=== PATIENT | female | born 1975 | race Caucasian/White ===

== ENCOUNTER 2018-10-31 01:02 | Observation (INO) | payer MEDICARE, MEDICAID ==
[~2018-10-31] VITALS: Ht 157.5 cm; Wt 82.6 kg
[2018-10-31] VITALS (10 sets, daily range): BP systolic 109–143; BP diastolic 62–93
[~2018-10-31 01:02] MED LIST: ACET500T68 PO; MELO-205 PO
[2018-10-31] MEDS: NORMOSOL R SOLN(*) 1000 ML BAG 1,000 ML IV PRN ×2 (08:39→11:16)
[2018-10-31] MEDS ORDERED: fentaNYL CITR 100 MCG/2 ML AMP ONE ×3 (09:28→14:36)
[2018-10-31] MEDS ORDERED: ONDANSETRON 4 MG/2 ML VIAL ONE (09:29)
[2018-10-31] MEDS ORDERED: DEXAMETHASONE SOD PHOS 10MG/ML ONE (09:29)
[2018-10-31] MEDS ORDERED: LIDOCAINE MPF 1% 5 ML VIAL ONE (09:29)
[2018-10-31] MEDS ORDERED: KETAMINE HCL 500 MG/10 ML VIAL ONE (09:29)
[2018-10-31] MEDS ORDERED: THROMBIN (BOVINE) 20,000 UNIT VIAL ONE (09:29)
[2018-10-31] MEDS ORDERED: ROCURONIUM BROM 10 MG/ML 10 ML ONE (09:29)
[2018-10-31] MEDS ORDERED: PROPOFOL EMUL(*) 10MG/ML 20 ML 20 ML ONE (09:29)
[2018-10-31] MEDS ORDERED: PHENYLEPHRINE 10 MG/1 ML VIAL ONE (09:32)
[2018-10-31] MEDS ORDERED: PREGABALIN 150 MG CAPSULE PO ONE (09:35)
[2018-10-31] MEDS ORDERED: MIDAZOLAM 2 MG/2 ML VIAL IVP PRN (09:35)
[2018-10-31] MEDS ORDERED: ceFAZolin(*) 2GM/D5W 50ML 50 ML IVPB ONE (09:35)
[2018-10-31] MEDS ORDERED: ACETAMINOPHEN 500 MG TAB PO ONE (09:35)
[2018-10-31] MEDS ORDERED: LIDOCAINE/SOD BICARB 8.4% SYR ID ONE (09:35)
[2018-10-31] MEDS ORDERED: FAMOTIDINE 20 MG TAB PO ONE (09:35)
[2018-10-31] MEDS ORDERED: REMIFENTANIL HCL 1 MG VIAL ONE ×2 (09:41→13:25)
[2018-10-31] MEDS ORDERED: PROPOFOL EMUL(*) 10MG/ML 20 ML 60 ML ONE ×2 (09:49→12:34)
[2018-10-31] MEDS ORDERED: HYDROCORTISONE 100 MG/2 ML IVP ONE (11:15)
[2018-10-31] MEDS ORDERED: SUGAMMADEX SOD 500 MG/5 ML SDV ONE (11:48)
--- NOTE | 2018-10-31 14:02 | RADIOLOGY IMAGING REPORT ---
[place] [facility] [place] NAME[place] Estelle Hannah : 1975 MR: [id number] V: [id number] EXAM DATE: ORDERING PHYSICIAN: AURELIO MOYA TECHNOLOGIST: Location: [facility] - [place] Patient: Estelle Hannah : 1975 Visit/Account:[id number] Date of Sevice: 10/31/2018 Technique: CERVICAL SPINE 2 OR 3 VIEW HISTORY: C5-C7 fusion Comparison studies: None FINDINGS: 2 lateral views were obtained of the cervical spine. Surgical instrumentation is seen ante rior to the C5-C6 disc space. Subsequently, anterior cervical discectomy and fusion is noted at C5-C 6 and C6-C7. IMPRESSION: 1. Operative images as above. Please see procedural report for complete details. Report Dictated By: Dutch Law DO at 10/31/2018 1:56 PM Report E-Signed By: Dutch Law DO at 10/31/2018 1:58 PM WSN:[id number]
[2018-10-31] MEDS ORDERED: diphenhydrAMINE 25 MG CAP PO PRN (14:35)
[2018-10-31] MEDS ORDERED: MAGNESIUM HYDROXIDE* 30ML UDCP PO PRN (14:35)
[2018-10-31] MEDS ORDERED: ACETAMINOPHEN(*)1000 MG/100 ML 100 ML IVPB PRN (14:35)
[2018-10-31] MEDS ORDERED: BENZOCAINE/MENTHOL 1 EACH LOZG PO PRN (14:35)
[2018-10-31] MEDS ORDERED: LR(*) 1000 ML BAG 1,000 ML IV PRN (14:35)
[2018-10-31] MEDS ORDERED: BISACODYL 10 MG SUPP PR PRN (14:35)
[2018-10-31] MEDS ORDERED: FLUSH 10 ML SYR IVP PRN (14:35)
[2018-10-31] MEDS ORDERED: ACETAMINOPHEN 500 MG TAB PO PRN (14:35)
[2018-10-31] MEDS ORDERED: HYDROmorphone HCL 2 MG/ML SDV IVP PRN (14:35)
--- NOTE | 2018-10-31 14:48 | OPERATIVE REPORT 1 ---
EVENT DATE: October 31, 2018 SURGEON: Mario Lkahani MD ANESTHESIOLOGIST: Cresencio Carrion MD ANESTHESIA: General endotracheal. OYSTER FISHERMAN: GABRIEL Mcgovern PREOPERATIVE DIAGNOSIS Left C6 and C7 radiculopathy with C5-6 and C6-7 cervical degenerative disk disease. POSTOPERATIVE DIAGNOSIS Left C6 and C7 radiculopathy with C5-6 and C6-7 cervical degenerative disk disease. PROCEDURE PERFORMED C5-6 and C6-7 anterior cervical diskectomy and fusion. IV FLUIDS 1500 cc's. ESTIMATED BLOOD LOSS 40 cc's. IMPLANTS USED 1. 6 mm size small Titanium interbody implants from [employer] x2. 2. 3.5 mm x 14 mm fixation screws from [employer] x4. 3. 1 mL ViBone x2. SPECIMENS None. DRAINS 10-Azeri round Vance-Gillespie through the neck. COMPLICATIONS None. DISPOSITION Post-Anesthesia Care Unit. INDICATIONS Ms. Hannah is a 43-year-old female who presented to my clinic with a complaint of neck and severe radiating left arm pain. The pain began in mid September and improved briefly as when it started it was just neck pain. She then began experiencing extreme left upper extremity periscapular pain radiating down the triceps and into the dorsum and lateral aspect of the left forearm. She had pain, numbness and tingling in the index and long finger and occasionally in the ring finger. She had weakness in the left arm but denied any issues of fine motor skills. Her physical examination was significant for a positive Spurling's maneuver to the left in the C7 distribution. Strength was 5/5 in the right triceps, 4/5 in the left triceps. Light touch sensation was dysesthetic in the index and long finger of the left hand and deep tendon reflexes were 2+ at bilateral biceps, 1+ at the right triceps and absent at the left triceps. She also has a positive Engel's sign bilaterally. Her MRI showed some compression of the cord at C5-6 and C6-7 with potentially some faint signal increase within the cord parenchyma. She had moderate bilateral foraminal narrowing at the C5-6 level and at C6-7 she had mild right and severe left neuroforaminal narrowing with a large inferiorly extruded soft disk herniation there on the left side. Secondary to ongoing pain and failure of nonsurgical care, Ms. Hannah was offered and elected to undergo C5-6 and C6-7 anterior cervical diskectomy and fusion. Prior to surgery, I explained in detail to the patient the possible risks of surgery. These risks include bleeding, infection, damage to surrounding structures, spinal cord injury, spinal fluid leak, meningitis, persistent and/or worsening pain, nerve root injury, hoarseness and swallowing difficulties, possibly requiring tube feeding, , blindness, sexual dysfunction, autonomic nervous system dysfunction, damage to the superior or recurrent laryngeal nerve, etc. An understanding in general spinal surgery is more predictive at improving extremity discomfort than axial spine pain and halting progression of cord dysfunction rather than improving it was stressed. DESCRIPTION OF PROCEDURE On the date of surgery, the patient was met in the preoperative hold area and all questions were answered. The operative site was identified and marked by myself. The patient was then brought in good condition and after succumbing to anesthesia was positioned in the supine position on a standard OR bed. The head of the bed was extended slightly and the arms were tucked loosely at the sides to afford access to the anterior cervical spine. Tape was used to retract the shoulders inferiorly and to provide us better access to the neck. All bony protuberances and soft tissues were well padded in the standard fashion. Care was taken to maintain appropriate perfusion pressures during anesthesia. Preoperative antibiotics were administered according to the appropriate timing schedule. At the conclusion of the procedure, sponge and needle counts were correct x2. A final time-out was undertaken by members of the operating team to confirm correct patient, correct levels and correct surgery. The patient was then prepped and draped in the standard sterile orthopedic fashion and a transverse incision was made over the intended surgical levels on the anterior neck. Sharp dissection was carried out down to the platysma, which was divided. A finger was then used to palpate the carotid pulse and blunt finger dissection was carried out medial to the carotid sheath, developing a plane in the retropharyngeal space. Soft tissues were elevated off the anterior cervical spine in a subperiosteal manner including the longus colli muscles. A lateral radiograph was obtained to confirm appropriate spinal levels. A self-retaining retractor was then placed and distracted and a microscope brought into the field. We started at the C5-C6 level and #15 blade was used to perform an annulotomy of the anterior annulus of the C5-C6 disk. Progressively, smaller curettes as well as a high-speed bur were then used to perform a diskectomy from ventral to dorsal and out to the width of the uncovertebral joints bilaterally. Once we reached the posterior third of the interspace, a Cloward line therapist was placed and distracted. There was no change in neurophysiologic monitoring. We continued posteriorly, taking down the remainder of the nucleus and the posterior annulus and then I used a 4-0 forward-angled curette to tease through the fibers of the posterior longitudinal ligament. Once this was accomplished, the PLL was taken down with a combination of #1 and #2 Kerrisons. A nerve pierre was passed behind the vertebral bodies above and below to ensure there was no further compression on the cord. The nerve hook was also passed out bilateral foramina to ensure no compression of the exiting nerve roots. Once the decompression was complete, the wound was irrigated thoroughly and a 6 mm trial rasp was placed into the interspace. It was found to fit nicely and so we selected a size small 6 mm interbody device. This was packed full of Vi-Bone and then impacted into the interspace with the healthcare consultant and then countersunk about 0.5 mm with a secondary impactor. The awl was then used to puncture the end plates through the integrated holes in the implant and then 3.5 mm x 14 mm screws were placed to fix the device in place. Attention was then turned to the C6-C7 level. We again performed an annulotomy and then performed a diskectomy, working ventral to dorsal with progressively smaller curettes and the high speed bur. Once we got behind the posterior annulus, I did identify a very large piece of loose disk material in the lateral recess on the left, which was extending out into the foramen and extending caudally. This was removed with pituitary rongeur. We took down the PLL in the same manner as at the C5-C6 level and again checked to ensure that there was no further compression on the spinal cord and we performed wide foraminotomies bilaterally to completely decompress the neural elements. The wound was then irrigated with copious sterile saline solution and again a 6 mm interbody device was selected. This was packed with ViBone and impacted and countersunk within the interspace. The fixation screws were placed and tightened and the entire wound was then irrigated with copious sterile saline solution. A lateral radiograph was obtained to confirm appropriate positioning of all the implants. The wound was then closed in layers using interrupted sutures for the platysma, inverted interrupted sutures for the subcutaneous tissue and then a running subcuticular skin stitch. Sponge and needle counts were correct x2. A 10- Azeri round Vance Gillespie drain was left deep to the platysma. POSTOPERATIVE CARE PLAN Ms. Hannah will remain in the hospital overnight and will be discharged home postoperative day #1. She will followup in my clinic in two weeks for wound check and examination. MERYL
[2018-10-31] MEDS: oxyCODONE HCL 5 MG CAP PO PRN ×2 (16:18→21:01)
--- NOTE | 2018-10-31 17:39 | NUR ---
Physical Therapy Impression PT eval completed with pt instructed in precautions and use of collar. Pt completed log roll training for bed mobility and SBA/CGA for sit to/from stand and side step at edge of bed to access bedside comode. Pt encouraged to ambulate to/from BR with nursing for next toileting need, as she demos proper leg strength and safety awareness skills for mobility. Physical Therapy Goals 1. Pt to be modified indep with bed mobility and supine to/from sit transfers 2. Pt to be modified indep with sit to/from stand transfers 3. Pt to ambulate x 150' with least restrictive device and modified indep 4. Pt to be modified indep with up/down step x 2 with and without assistive device. Patient's Goals
[2018-10-31] MEDS: DIAZEPAM 5 MG TAB PO PRN (18:19)
--- NOTE | 2018-10-31 18:27 | Hospitalist Progress Note ---
Subjective Progress Notes Subjective No cp/sob. 100cc of EBL. 2000cc of crystalloid, dexamethasone given intra-op. Physical Exam Vital Signs Date Time Temp Pulse Resp B/P (MAP) Pulse Ox O2 Delivery O2 Flow Rate FiO2 10/31/18 16:49 99 Nasal Cannula 2.0 10/31/18 16:08 97.8 90 14 127/83 (98) General Appearance: Alert, Awake, No Acute Distress Cardiovascular: Regular Rate and Rhythm Respiratory: Clear to Auscultation Extremities: No Edema Assessment and Plan Problems: (1) Status post cervical spinal fusion Status: Acute Assessment & Plan: She is had a C5-6 and C6-7 diskectomy and fusion. No CV/pulmonary issues. Will defer to Dr. Lakhani for VTE prophylaxis. Exam Sepsis Risk: No Definite Risk BETTYE DORADO MD Oct 31, 2018 18:27
[2018-10-31] MEDS: ceFAZolin(*) 2GM/D5W 50ML 50 ML IVPB SCH (19:09)
[2018-10-31] MEDS: ONDANSETRON 4 MG/2 ML VIAL IVP PRN (19:51)
[2018-10-31] MEDS: DOCUSATE SODIUM 100 MG CAP PO SCH (20:33)
[2018-10-31] MEDS: APAP/HYDROCODONE 325/5 TAB PO PRN (22:06)
[2018-11-01] MEDS: DIAZEPAM 5 MG TAB PO PRN ×3 (00:18→13:52)
[2018-11-01 00:19] VITALS: BP 134/87
[2018-11-01] MEDS: APAP/HYDROCODONE 325/5 TAB PO PRN ×4 (03:08→16:30)
[2018-11-01 03:09] VITALS: BP 117/70
[2018-11-01] MEDS: ONDANSETRON 4 MG/2 ML VIAL IVP PRN ×2 (03:09→11:20)
[2018-11-01] MEDS: ceFAZolin(*) 2GM/D5W 50ML 50 ML IVPB SCH ×2 (03:09→11:20)
--- NOTE | 2018-11-01 05:57 | NUR ---
Patient reporting pain to posterior left knee, noted to have thigh high TEDS rolled down to below the knee. Adjusted TEDS to thigh, no redness or noted to area. Patient able to ambulate to bathroom without pain, and denied pain to posterior knee once returning from bathroom. Addendum: 11/01/18 at 0600 by IRENE PADILLA RN Amended: Links added.
[2018-11-01 07:17] VITALS: BP 133/86
--- NOTE | 2018-11-01 07:41 | Hospitalist Progress Note ---
Subjective Progress Notes Subjective 43F admitted after cervical decompression. MARLEEN overnight, medically stable for discharge. Patient Complains of: Respiratory: No: Cough, Shortness of Breath Gastrointestinal: No Nausea, No Vomiting Physical Exam Vital Signs Date Time Temp Pulse Resp B/P (MAP) Pulse Ox O2 Delivery O2 Flow Rate FiO2 11/01/18 07:17 97.5 96 16 133/86 (102) 96 Room Air 10/31/18 16:49 2.0 Intake and Output 11/01/18 07:00 Intake Total 3975 ml Output Total 1663 ml Balance 2312 ml Intake Oral 1275 ml IV Total 2700 ml Blood Product 0 ml Other 0 ml Output Urine Total 500 ml Emesis 1000 ml Drainage Total 43 ml Estimated Blood Loss 100 ml Other 20 ml # Voids 7 # Bowel Movements 0 # Emeses 2 General Appearance: Alert, Awake, No Acute Distress, Afebrile Neuro: No Gross deficits ENT: Normal Neck: Other (C collar, wound dressing clean and dry) Respiratory: No Respiratory Distress GI: Soft and Non-Tender Musculoskeletal: No Weakness/Pain Assessment and Plan Problems: (1) Status post cervical spinal fusion Status: Acute Assessment & Plan: She is had a C5-6 and C6-7 diskectomy and fusion. No CV/pulmonary issues. Will defer to Dr. Lakhani for VTE prophylaxis. Exam Sepsis Risk: No Definite Risk LEANDRO ELIZABETH DO Nov 01, 2018 07:41
--- NOTE | 2018-11-01 08:36 | RADIOLOGY IMAGING REPORT ---
[place] [facility] [place] NAME: Estelle Hannah : 1975 MR: [id number] V: [id number] EXAM DATE: ORDERING PHYSICIAN: AURELIO MOYA TECHNOLOGIST: Location: [facility] - [place] Patient: Estelle Hannah : 1975 Visit/Account:[id number] Date of Sevice: 11/01/2018 3 views cervical spine Indication: Postop cervical fusion Comparison: March 31, 2019. Findings: Straightening of the normal cervical lordosis. New interbody cervical fusion hardware at C5-C6 and C6-C7 without visualized complication. The prevertebral soft tissues are within normal limits. The odontoid is unremarkable. The vertebral body heights are well maintained. IMPRESSION: 1. No acute findings. 2. New cervical fusion hardware at C5-C6 and C6-C7 without visualized complication. Report Dictated By: Anirudh Tsai MD at 11/01/2018 8:29 AM Report E-Signed By: Anirudh Tsai MD at 11/01/2018 8:31 AM [id number]
[2018-11-01 08:41] VITALS: Ht 157.5 cm; Wt 82.6 kg
[2018-11-01] MEDS: DOCUSATE SODIUM 100 MG CAP PO SCH (09:23)
[2018-11-01] MEDS ORDERED: HYDR-385 PO (09:47)
[2018-11-01] MEDS ORDERED: DOCU240C84 PO (09:47)
--- NOTE | 2018-11-01 10:26 | NUR ---
Physical Therapy Impression Pt demos modified indep with bed mobility and excellent log roll technique. While seated at EOB, pt's CG was instructed on doffing collar. Pt then fixed her hair and CG returned to his chair and did not attend to donning of collar thereafter, despite his prescence in the room. Pt notes that she will request his help and feels confident on instructing him if necessary. Pt then tolerated ambulation in hallway both with and without assistive device and up/down platform step both with FWW and with rail for safety. Pt notes that she feels confident with ADL's and verbalizes understanding of precautions. Physical Therapy Goals 1. Pt to be modified indep with bed mobility and supine to/from sit transfers 2. Pt to be modified indep with sit to/from stand transfers 3. Pt to ambulate x 150' with least restrictive device and modified indep 4. Pt to be modified indep with up/down step x 2 with and without assistive device. Patient's Goals
[2018-11-01 11:24] VITALS: BP 141/91
[2018-11-01 15:25] VITALS: BP 110/66
== END 2018-11-01 11:20 | disposition home or self-care (01) ==
LOC: OR 01:02 → INTOOBSV 16:00 → MED 16:00
PROVIDERS: ADMIT Orthopaedic Surgery; ATTEND Orthopaedic Surgery
DX: M50.122 Cervical disc disorder at C5-C6 level with radiculopathy (principal)
CPT/HCPCS: 22551; 22552; 36415; 72020; 72040; 81025; 86850; 86900; 86901; 97116; 97161; 97530; A9270; C1713; G0378; J0131; J1100; J1720; J2001; J2370; J2405; J2704; J3010; J3490; L0172; J0690